=== PATIENT | male | born 2000 | race Caucasian/White ===

== ENCOUNTER 2024-12-27 17:00 | Emergency (ER) | payer MEDICAID ==
[~2024-12-27] VITALS: Ht 172.7 cm; Wt 79.4 kg
[2024-12-27 17:04] VITALS: O2SAT 100
[2024-12-27] MEDS ORDERED: IBUP-2028 MT (19:34)
[2024-12-27] MEDS ORDERED: GABA-529 MT (19:34)
[2024-12-27] MEDS ORDERED: LIDO700A15 TP (19:34)
[2024-12-27] MEDS: KETOROLAC 30MG/ML VIAL IM ONE (19:35)
[2024-12-27] MEDS: ACETAMINOPHEN 325MG TABLET PO ONE (19:35)
[2024-12-27 19:52] VITALS: BP 124/80; PULSE 89; RESP 19; TEMP 36.9; O2SAT 100
== END 2024-12-27 19:54 | disposition home or self-care (01) ==
LOC: ER 17:00
DX: M54.50 Low back pain, unspecified (principal); Z79.899 Other long term (current) drug therapy; Z98.890 Other specified postprocedural states
CPT/HCPCS: 99283; 72170; 96372; J1885